=== PATIENT | male | born 1950 | race Caucasian/White ===

== ENCOUNTER 2021-12-21 09:00 | Day surgery (SDC) | payer OTHER ==
[2021-12-19 11:30] VITALS: BMI 28.2
[2021-12-21] MEDS ORDERED: PROPOFOL 0 ML ONE (10:28)
[2021-12-21] MEDS ORDERED: PROPOFOL 20 ML ONE (10:28)
== END 2021-12-21 11:40 | disposition home or self-care (01) ==
LOC: CSHSDC 09:00
PROVIDERS: ATTEND Internal Medicine Gastroenterology
PROC: 0DBN8ZZ Excision of Sigmoid Colon, Via Natural or Artificial Opening Endoscopic (ICD-10-PCS; principal; 2021-12-21)
DX: D12.3 Benign neoplasm of transverse colon (principal); K63.5 Polyp of colon; K57.30 Diverticulosis of large intestine without perforation or abscess without bleeding; K64.9 Unspecified hemorrhoids; I10 Essential (primary) hypertension; E78.5 Hyperlipidemia, unspecified; J44.9 Chronic obstructive pulmonary disease, unspecified; N40.0 Benign prostatic hyperplasia without lower urinary tract symptoms; M19.90 Unspecified osteoarthritis, unspecified site; Z79.899 Other long term (current) drug therapy
CPT/HCPCS: 88305; J2704